=== PATIENT | male | born 1935 | race Caucasian/White ===

== ENCOUNTER 2019-09-18 12:26 | Emergency (ER) | payer MEDICARE, OTHER ==
[~2019-09-18] VITALS: Ht 172.7 cm; Wt 90.7 kg
[~2019-09-18 12:26] MED LIST: Apixaban Base PO; BUDE0.5S IN; CETI-41 PO; DIGO0.1262 PO; FURO1TAB31 PO; GABA100C9 PO; LISI-646 PO; METO-6 PO; PRAV20TA3 GT; TAM04C PO
[2019-09-18] MEDS ORDERED: SODIUM CHLORIDE 0.9% 1,000 ML IV ONE (13:13)
[2019-09-18 14:05] LABS: Basophils # (auto) 0.1 uL; Basophils % (auto) 1.2 % (0.0-2.0); Eosinophils # (auto) 0.5 uL; Eosinophils % (auto) 8.4 % (0.0-7.0); Hematocrit 42.2 % (41.0-53.0); Hemoglobin 14.3 g/dL (13.5-17.5); Lymphocytes # (auto) 0.8 uL; Lymphocytes % (auto) 13.3 % (10.0-50.0); Mean Corpuscular Hemoglobin 32.7 pg (28.0-32.0); Mean Corpuscular Hgb Conc. 33.9 g/dL (32.0-36.0); Mean Corpuscular Volume 96.7 fL (80.0-100.0); Monocytes # (auto) 0.4 uL; Monocytes % (auto) 6.9 % (0.0-12.0); Neutrophils # (auto) 4.3 uL; Neutrophils % (auto) 70.2 % (37.0-80.0); Platelet Count (auto) 146 10^3/uL (140-450); Red Blood Cells 4.37 10^6/uL (4.5-5.90); Red Cell Distribution Width 13.6 % (11.8-14.3)
[2019-09-18 14:20] LABS: INR 1.26 (0.9-1.15)
[2019-09-18 14:24] LABS: Albumin 3.6 g/dL (3.4-5.0); Anion Gap 4 (5-15); Blood Urea Nitrogen 27 mg/dL (7-18); Calcium 8.8 mg/dL (8.5-10.1); Carbon Dioxide 28 mmol/L (21-32); Chloride 109 mmol/L (98-107); GFR African American 84 mL/min; GFR Non-African American 70 mL/min; Glucose 82 mg/dL (74-106); Potassium 4.6 mmol/L (3.5-5.1); Sodium 141 mmol/L (136-145)
[2019-09-18 14:31] LABS: Alanine Aminotransferase 16 U/L (16-61); Alkaline Phosphatase 49 U/L (45-117); Aspartate Aminotransferase 15 U/L (15-37); Total Protein 6.6 g/dL (6.4-8.2)
[2019-09-18 14:59] VITALS: BP 112/58
== END 2019-09-18 16:01 | disposition home or self-care (01) ==
LOC: EDBD 12:26 → ER 12:27
DX: I48.20 Chronic atrial fibrillation, unspecified (principal); I95.9 Hypotension, unspecified; E11.9 Type 2 diabetes mellitus without complications; E78.5 Hyperlipidemia, unspecified; I11.0 Hypertensive heart disease with heart failure; I50.9 Heart failure, unspecified; Z79.899 Other long term (current) drug therapy
CPT/HCPCS: 36415; 71045; 80053; 83880; 84484; 85025; 85610; 85730; 93005; 96360; 96361; 99284; J7030

== ENCOUNTER 2020-03-14 03:43 | Inpatient (IN) | payer OTHER ==
[~2020-03-14] VITALS: Ht 170.2 cm; Wt 88.4 kg
[~2020-03-14 03:43] MED LIST changes: -PRAV20TA3 GT; +PRAV20TA3 PO
[2020-03-14 04:15] LABS: Basophils # (auto) 0.1 10 ^3/uL (0-0.2); Basophils % (auto) 0.7 % (0.0-2.0); Eosinophils # (auto) 0 10 ^3/uL (0-0.8); Eosinophils % (auto) 0.3 % (0.0-7.0); Hematocrit 47.6 % (41.0-53.0); Hemoglobin 16.4 g/dL (13.5-17.5); Lymphocytes # (auto) 0.7 10 ^3/uL (0.4-5.4); Lymphocytes % (auto) 7.5 % (10.0-50.0); Mean Corpuscular Hemoglobin 32.4 pg (28.0-32.0); Mean Corpuscular Hgb Conc. 34.4 g/dL (32.0-36.0); Mean Corpuscular Volume 94.1 fL (80.0-100.0); Monocytes # (auto) 0.4 10 ^3/uL (0-1.3); Monocytes % (auto) 4.5 % (0.0-12.0); Neutrophils # (auto) 8.1 10 ^3/uL (1.6-8.6); Platelet Count (auto) 163 10^3/uL (140-450); Red Blood Cells 5.06 10^6/uL (4.5-5.90); Red Cell Distribution Width 14.1 % (11.8-14.3); White Blood Cell 9.4 10^3/uL (4.4-10.8)
[2020-03-14] MEDS ORDERED: IOHEXOL 300 MG/ML 100ML BOTTLE IJ ONE (04:24)
[2020-03-14 04:33] LABS: Alanine Aminotransferase 21 U/L (16-61); Albumin 4.2 g/dL (3.4-5.0); Amylase 47 U/L (25-115); Anion Gap 7 (5-15); Aspartate Aminotransferase 26 U/L (15-37); BUN/Creatinine Ratio 13.5; Blood Urea Nitrogen 13 mg/dL (7-18); Calcium 9.2 mg/dL (8.5-10.1); Carbon Dioxide 27 mmol/L (21-32); Chloride 106 mmol/L (98-107); GFR African American 96 mL/min; GFR Non-African American 80 mL/min; Glucose 119 mg/dL (74-106); Lipase 56 U/L (73-393); Potassium 3.9 mmol/L (3.5-5.1); Sodium 140 mmol/L (136-145)
[2020-03-14 04:37] LABS: INR 1.16 (0.9-1.15); Partial Thromboplastin Time 30.9 sec (23.64-32.05)
[2020-03-14 04:38] LABS: Alkaline Phosphatase 65 U/L (45-117); Bilirubin, Total 1.3 mg/dL (0.2-1.0); Total Protein 8.1 g/dL (6.4-8.2)
[2020-03-14] MEDS ORDERED: ONDANSETRON HCL 4 MG/2 ML VIAL IV ONE (05:15)
[2020-03-14] MEDS ORDERED: MORPHINE SULF INJ 2 MG/ML SYRINGE 1ML IV ONE (05:15)
[2020-03-14] MEDS ORDERED: D5W/SOD CHLO 0.9% 1,000 ML IV ONE (06:00)
[2020-03-14] MEDS ORDERED: SODIUM CHLORIDE 0.9% 1,000 ML IV SCH (06:48)
[2020-03-14] MEDS ORDERED: HYDROcodone-ACET 5/325MG TAB PO PRN (07:00)
[2020-03-14] MEDS ORDERED: ONDANSETRON HCL 4 MG/2 ML VIAL IV PRN (07:00)
[2020-03-14] MEDS ORDERED: MORPHINE SULFATE 4 MG/ML SYR/VIAL IV PRN (07:00)
[2020-03-14] MEDS ORDERED: HYDROmorphone HCL 2 MG/ML VL IV PRN ×2 (07:00→13:00)
[2020-03-14] MEDS ORDERED: DEXTROSE (50%) 50ML SYRG IV PRN (07:00)
[2020-03-14] MEDS ORDERED: ACETAMINOPHEN 325 MG TAB PO PRN (07:00)
[2020-03-14] MEDS: ACCU-CHEK COMFORT CURVE STRIP VI SCH ×5 (09:10→23:42)
[2020-03-14] MEDS: InsuLIN REG 1unit/0.01ml Soln (100units/ml) SC SCH ×5 (09:11→23:42)
[2020-03-14] MEDS: METOPROLOL SUCCINATE XL 50 MG TAB PO SCH ×2 (10:00→10:10)
[2020-03-14] MEDS: PRAVASTATIN SODIUM 20 MG TAB PO SCH (10:10)
[2020-03-14] MEDS: LISINOPRIL 20 MG TAB PO SCH (10:10)
[2020-03-14] MEDS: FUROSEMIDE 40 MG TAB PO SCH (10:11)
[2020-03-14] MEDS: DIGOXIN 0.125 MG TAB PO SCH (10:11)
[2020-03-14] MEDS: TAMSULOSIN HYDROCHLORIDE 0.4 MG CAP PO SCH (10:19)
[2020-03-14 10:40] VITALS: BP 149/80
[2020-03-14] MEDS ORDERED: SUCCINYLCHOLINE CHLORIDE 20 MG/ML 10ML VIAL IV ONE (11:07)
[2020-03-14 11:19] LABS: Urine Bacteria NONE SEEN /hpf (None Seen); Urine Blood 1+ /uL (Negative); Urine Mucus FEW (None Seen); Urine WBC 1 /hpf (0 - 3)
[2020-03-14 11:25] LABS: Urine Specific Gravity > 1.050 (1.001-1.035)
[2020-03-14] MEDS ORDERED: ceFAZolin 1GM/50ML 50 ML IV ONE (11:59)
[2020-03-14] MEDS ORDERED: NOREPINEPHRINE 8 MG/250ML KIT 250 ML IV SCH (12:00)
[2020-03-14] MEDS ORDERED: ceFAZolin 1GM VL IV ONE (12:05)
[2020-03-14] MEDS ORDERED: LIDOCAINE W/ EPINEPHRINE 1% 20ML VIAL ONE (12:05)
[2020-03-14] MEDS ORDERED: BUPIVACAINE 0.25% INJ 50ML VIAL ONE (12:06)
[2020-03-14] MEDS ORDERED: fentaNYL CITRATE 100 MCG/2 ML VL ONE (12:09)
[2020-03-14] MEDS ORDERED: MIDAZOLAM HCL 1MG/1ML-2 ML VIAL ONE (12:09)
[2020-03-14] MEDS ORDERED: MEPERIDINE HCL (25 MG/ML) 1ML VIAL ONE (12:09)
[2020-03-14] MEDS ORDERED: POVIDONE IODINE 10 % TOPICAL OINT 30GM TOP ONE (12:50)
[2020-03-14] MEDS ORDERED: PROPOFOL 10 MG/ML 20 ML IV ONE (12:52)
[2020-03-14] MEDS ORDERED: DexAMETHasone SOD PHOS 10MG/1ML VIAL INJ ONE (12:52)
[2020-03-14] MEDS: GABAPENTIN 100 MG CAP PO SCH ×2 (14:00→21:15)
[2020-03-14 14:46] VITALS: BP 164/98
[2020-03-14] MEDS: D5W/SOD CHL 0.45%/KCL 20MEQ 1,000 ML IV SCH (15:28)
[2020-03-14] MEDS: ceFAZolin 1GM/50ML 50 ML IV SCH ×2 (15:42→21:15)
[2020-03-14] MEDS: metroNIDAZOLE 500MG/100ML 100 ML IV SCH ×2 (15:42→22:28)
[2020-03-14 15:59] VITALS: BP 150/72
[2020-03-14 20:00] VITALS: BP 129/80
[2020-03-15] VITALS: BP 129/80
[2020-03-15 04:00] VITALS: BP 125/64
[2020-03-15] MEDS: InsuLIN REG 1unit/0.01ml Soln (100units/ml) SC SCH ×5 (04:00→22:00)
[2020-03-15] MEDS: ACCU-CHEK COMFORT CURVE STRIP VI SCH ×5 (04:16→22:19)
[2020-03-15] MEDS: GABAPENTIN 100 MG CAP PO SCH ×3 (04:16→22:25)
[2020-03-15] MEDS: ceFAZolin 1GM/50ML 50 ML IV SCH ×3 (05:46→22:25)
[2020-03-15] MEDS: metroNIDAZOLE 500MG/100ML 100 ML IV SCH ×3 (06:47→22:24)
[2020-03-15 07:40] VITALS: BP 125/68
[2020-03-15 09:24] LABS: Basophils # (auto) 0 10 ^3/uL (0-0.2); Basophils % (auto) 0.5 % (0.0-2.0); Eosinophils # (auto) 0.1 10 ^3/uL (0-0.8); Eosinophils % (auto) 1.5 % (0.0-7.0); Hematocrit 47.5 % (41.0-53.0); Lymphocytes # (auto) 0.8 10 ^3/uL (0.4-5.4); Mean Corpuscular Hemoglobin 31.5 pg (28.0-32.0); Mean Corpuscular Hgb Conc. 33.6 g/dL (32.0-36.0); Mean Corpuscular Volume 93.6 fL (80.0-100.0); Monocytes # (auto) 0.6 10 ^3/uL (0-1.3); Neutrophils # (auto) 7.2 10 ^3/uL (1.6-8.6); Platelet Count (auto) 155 10^3/uL (140-450); Red Blood Cells 5.07 10^6/uL (4.5-5.90); White Blood Cell 8.8 10^3/uL (4.4-10.8)
[2020-03-15 09:46] LABS: Albumin 3.7 g/dL (3.4-5.0); BUN/Creatinine Ratio 9.7; Calcium 8.9 mg/dL (8.5-10.1); Potassium 3.5 mmol/L (3.5-5.1)
[2020-03-15 09:49] LABS: Bilirubin, Total 1.3 mg/dL (0.2-1.0); Total Protein 7.3 g/dL (6.4-8.2)
[2020-03-15] MEDS: D5W/SOD CHL 0.45%/KCL 20MEQ 1,000 ML IV SCH ×2 (09:50→22:25)
[2020-03-15] MEDS: PANTOPRAZOLE 40 MG/10 ML VIAL INJ IV SCH (09:51)
[2020-03-15] MEDS: TAMSULOSIN HYDROCHLORIDE 0.4 MG CAP PO SCH (09:51)
[2020-03-15] MEDS: DIGOXIN 0.125 MG TAB PO SCH (09:52)
[2020-03-15] MEDS: FUROSEMIDE 40 MG TAB PO SCH (09:52)
[2020-03-15] MEDS: LISINOPRIL 20 MG TAB PO SCH (09:53)
[2020-03-15] MEDS: PRAVASTATIN SODIUM 20 MG TAB PO SCH (09:53)
[2020-03-15] MEDS: METOPROLOL SUCCINATE XL 50 MG TAB PO SCH (09:54)
[2020-03-15 13:00] VITALS: BP 117/72
[2020-03-15] MEDS ORDERED: FURO20TA3 PO (15:42)
[2020-03-15] MEDS ORDERED: BISO5TAB44 PO (15:44)
[2020-03-15 16:29] VITALS: BP 120/66
[2020-03-15 21:41] VITALS: BP 116/61
[2020-03-16 05:02] VITALS: BP 111/56
[2020-03-16] MEDS: ceFAZolin 1GM/50ML 50 ML IV SCH ×3 (06:28→22:16)
[2020-03-16] MEDS: metroNIDAZOLE 500MG/100ML 100 ML IV SCH ×3 (06:29→22:16)
[2020-03-16] MEDS: GABAPENTIN 100 MG CAP PO SCH ×3 (06:29→22:17)
[2020-03-16] MEDS: ACCU-CHEK COMFORT CURVE STRIP VI SCH (06:31)
[2020-03-16] MEDS: InsuLIN REG 1unit/0.01ml Soln (100units/ml) SC SCH (06:31)
[2020-03-16 09:00] VITALS: BP 125/63
[2020-03-16] MEDS: PRAVASTATIN SODIUM 20 MG TAB PO SCH (10:19)
[2020-03-16] MEDS: FUROSEMIDE 40 MG TAB PO SCH (10:19)
[2020-03-16] MEDS: TAMSULOSIN HYDROCHLORIDE 0.4 MG CAP PO SCH (10:19)
[2020-03-16] MEDS: PANTOPRAZOLE 40 MG/10 ML VIAL INJ IV SCH (10:19)
[2020-03-16] MEDS: DIGOXIN 0.125 MG TAB PO SCH (10:20)
[2020-03-16] MEDS: LISINOPRIL 20 MG TAB PO SCH (10:20)
[2020-03-16] MEDS: METOPROLOL SUCCINATE XL 50 MG TAB PO SCH (10:20)
[2020-03-16 13:00] VITALS: BP 95/54
[2020-03-16 16:21] VITALS: BP 106/76
[2020-03-16 21:00] VITALS: BP 92/43
[2020-03-16] MEDS: APIXABAN 5 MG TAB PO SCH (22:16)
[2020-03-16] MEDS: D5W/SOD CHL 0.45%/KCL 20MEQ 1,000 ML IV SCH (22:17)
[2020-03-17] MEDS: metroNIDAZOLE 500MG/100ML 100 ML IV SCH (04:37)
[2020-03-17] MEDS: ceFAZolin 1GM/50ML 50 ML IV SCH (04:37)
[2020-03-17] MEDS: GABAPENTIN 100 MG CAP PO SCH (04:37)
[2020-03-17 05:00] VITALS: BP 120/71
[2020-03-17 09:00] VITALS: BP 119/74
[2020-03-17] MEDS: TAMSULOSIN HYDROCHLORIDE 0.4 MG CAP PO SCH (09:42)
[2020-03-17] MEDS: APIXABAN 5 MG TAB PO SCH (09:42)
[2020-03-17] MEDS: METOPROLOL SUCCINATE XL 50 MG TAB PO SCH (09:42)
[2020-03-17] MEDS: LISINOPRIL 20 MG TAB PO SCH (09:42)
[2020-03-17] MEDS: FUROSEMIDE 40 MG TAB PO SCH (09:43)
[2020-03-17] MEDS: PRAVASTATIN SODIUM 20 MG TAB PO SCH (09:43)
[2020-03-17] MEDS: DIGOXIN 0.125 MG TAB PO SCH (09:43)
[2020-03-17] MEDS: PANTOPRAZOLE 40 MG/10 ML VIAL INJ IV SCH (09:47)
== END 2020-03-17 12:50 | disposition home or self-care (01) | DRG 353 ==
LOC: ER 03:49 → OVERFLOW 03:50 → WEST WING 09:34 → DOU IN ICU 15:21 → TELE-WESTW 03-15 11:24
PROVIDERS: ADMIT Hospitalist; ATTEND Family Medicine
PROC: 0WUF0KZ Supplement Abdominal Wall with Nonautologous Tissue Substitute, Open Approach (ICD-10-PCS; principal; 2020-03-14 12:15)
DX: K42.0 Umbilical hernia with obstruction, without gangrene (principal); I50.43 Acute on chronic combined systolic (congestive) and diastolic (congestive) heart failure; I48.91 Unspecified atrial fibrillation; E66.9 Obesity, unspecified; I11.0 Hypertensive heart disease with heart failure; E11.21 Type 2 diabetes mellitus with diabetic nephropathy; E11.40 Type 2 diabetes mellitus with diabetic neuropathy, unspecified; N40.0 Benign prostatic hyperplasia without lower urinary tract symptoms; E78.00 Pure hypercholesterolemia, unspecified; Z86.711 Personal history of pulmonary embolism; Z79.899 Other long term (current) drug therapy; Z90.49 Acquired absence of other specified parts of digestive tract; Z82.49 Family history of ischemic heart disease and other diseases of the circulatory system; Z87.891 Personal history of nicotine dependence; Z68.30 Body mass index [BMI] 30.0-30.9, adult
CPT/HCPCS: 36415; 71045; 74177; 80053; 81001; 82150; 82962; 83036; 83605; 83690; 83735; 83880; 84484; 85025; 85610; 85730; 86850; 86900; 86901; 96361; 96374; 96375; 97163; C9113; G0378; J0330; J0690; J1100; J2250; J2405; J2704; J3490; J7042